=== PATIENT | male | born 1990 | race Caucasian/White ===

== ENCOUNTER 2019-05-07 17:12 | Inpatient (IN) | payer OTHER ==
[2019-05-07 19:12] VITALS: BMI 23.6
[2019-05-07] MEDS ORDERED: BISMUTH SUBSALICYLATE 524 MG/30 ML UD PO PRN (20:07)
[2019-05-07] MEDS ORDERED: METHOCARBAMOL 500 MG TABLET PO PRN (20:07)
[2019-05-07] MEDS ORDERED: MAG HYDROX/AL HYDROX/SIMETH 30 ML UNIT-DOSE CUP PO PRN (20:07)
[2019-05-07] MEDS ORDERED: NICOTINE POLACRILEX 4 MG GUM BUC PRN (20:07)
[2019-05-07] MEDS ORDERED: IBUPROFEN 400 MG TABLET (FP) PO PRN (20:07)
[2019-05-07] MEDS ORDERED: MAGNESIUM CITRATE 300 ML BOTTLE PO PRN (20:07)
[2019-05-07] MEDS ORDERED: MAGNESIUM HYDROX 2400MG/30ML ORAL SUSPENSION 30 ML CUP PO PRN (20:07)
[2019-05-07] MEDS ORDERED: hydrOXYzine PAMOATE 25 MG CAPSULE (FP) PO PRN (20:07)
[2019-05-07] MEDS ORDERED: MENTHOL/PHENOL 1 EACH UD MM PRN (20:07)
[2019-05-07] MEDS ORDERED: ACETAMINOPHEN 325 MG TABLET (FP) PO PRN ×2 (20:07)
--- NOTE | 2019-05-07 20:07 | HP ---
COWS - Scale Resting Pulse: 0= [place] 80 or Below Sweatin= Chills/Flushing Restless Observation: 3= Extraneous Movement Pupil Size: 2= Moderately Dilated Bone or Joint Aches: 2= Severe Diffuse Aches Runny Nose/ Eye Tearin= Runny Nose/Eyes GI Upset > 30mins: 2= Nausea/Diarrhea Tremor Observation: 2= Slight Tremor Visible Yawning Observation: 0= None Anxiety or Irritability: 2=Irritable/Anxious Goose Flesh Skin: 0=Smooth Skin COWS Score: 16 CIWA Score Nausea/Vomitin Muscle Tremors: 3 Anxiety: 3 Agitation: 0-Normal Activity Paroxysmal Sweats: 2 Orientation: 0-Oriented Tacttile Disturbances: 0-None Auditory Disturbances: 2-Mild Harshness/Frighten Visual Disturbances: 2-Mild Sensitivity Headache: 2-Mild CIWA-Ar Total Score: 16 - Admission Criteria OASAS Guidelines: Admission for Medically Managed Detox: Requires at least one of the followin. CIWA greater than 12 2. Seizures within the past 24 hours 3. Delirium tremens within the past 24 hours 4. Hallucinations within the past 24 hours 5. Acute intervention needed for co occurring medical disorder 6. Acute intervention needed for co occurring psychiatric disorder 7. Severe withdrawal that cannot be handled at a lower level of care (continued vomiting, continued diarrhea, abnormal vital signs) requiring intravenous medication and/or fluids 8. Patient presents the following: CIWA greater than 12 Admission Criteria Met: Admission criteria met Admission ROS [facility] Chief Complaint: i overdosed Allergies/Adverse Reactions: Allergies Allergy/AdvReac Type Severity Reaction Status Date / Time No Known Allergies Allergy Verified 05/07/19 18:54 History of Present Illness: persents hosp for overdose at [facility] on ghb/methamphetamine also using heroin 1 bundle /d and 10mg xanax - Ebola screening Have you traveled outside of the country in the last 21 days: No (N) Have you had contact with anyone from an Ebola affected area: No Do you have a fever: No - Review of Systems Constitutional: Malaise, Changes in sleep EENT: reports: No Symptoms Reported Respiratory: reports: No Symptoms reported Cardiac: reports: No Symptoms Reported GI: reports: No Symptoms Reported : reports: No Symptoms Reported Musculoskeletal: reports: No Symptoms Reported Integumentary: reports: No Symptoms Reported Neuro: reports: No Symptoms reported Endocrine: reports: No Symptoms Reported Hematology: reports: No Symptoms Reported Psychiatric: reports: Anxious Patient History - Patient Medical History Hx Anemia: No Hx Asthma: No Hx Chronic Obstructive Pulmonary Disease (COPD): No Hx Cancer: No Hx Cardiac Disorders: No Hx Congestive Heart Failure: No Hx Hypertension: No Hx Hypercholesterolemia: No Hx Pacemaker: No HX Cerebrovascular Accident: No Hx Seizures: No Hx Dementia: No Hx Diabetes: No Hx Gastrointestinal Disorders: No Hx Liver Disease: No Hx Genitourinary Disorders: No Hx Sexually Transmitted Disorders: No Hx Renal Disease (ESRD): No Hx Thyroid Disease: No Hx Human Immunodeficiency Virus (HIV): No Hx Hepatitis C: No Hx Depression: No Hx Suicide Attempt: No Hx Bipolar Disorder: No Hx Schizophrenia: No Other Medical History: DENIES ALL - Patient Surgical History Past Surgical History: No - Smoking Cessation Smoking history: Current every day smoker Have you smoked in the past 12 months: Yes Aproximately how many cigarettes per day: 15 Initiated information on smoking cessation: Yes 'Breaking Loose' booklet given: 05/07/19 - Substances abused Other Other (specify): Methamphetamine Substance route: Injection Frequency: Daily Amount used: 1 gram Age of first use: 24 Date of last use: 05/06/19 Heroin Substance route: Injection Frequency: Daily Amount used: half a gram Age of first use: 19 Date of last use: 05/06/19 Alprazolam (Xanax) Substance route: Oral Frequency: Daily Amount used: 3 mg Age of first use: 15 Date of last use: 05/06/19 Family Disease History - Family Disease History Family History: Denies Admission Physical Exam [facility] - Vital Signs Vital Signs: Vital Signs - 24 hr 05/07/19 18:53 Temperature 97.2 F L Pulse Rate 65 Respiratory 16 Rate Blood Pressure 115/70 - Physical General Appearance: Yes: Disheveled, Mild Distress HEENTM: Yes: Within Normal Limits, EOMI Respiratory: Yes: Chest Non-Tender, Lungs Clear, Normal Breath Sounds Neck: Yes: Within Normal Limits Breast: Yes: Breast Exam Deferred Cardiology: Yes: Within Normal Limits Abdominal: Yes: Increased Bowel Sounds Back: Yes: Within Normal Limits Musculoskeletal: Yes: Within Normal Limits Extremities: Yes: Within Normal Limits Neurological: Yes: varnish dipper II-XII NML intact, Alert, Motor Strength 5/5 Integumentary: Yes: Normal Color, Dry, Warm Lymphatic: Yes: Within Normal Limits - Diagnostic (1) Gamma-hydroxybutyrate (GHB) use disorder, severe Current Visit: Yes Status: Acute (2) Opioid dependence with withdrawal Current Visit: Yes Status: Acute (3) Benzodiazepine dependence Current Visit: Yes Status: Acute Breathalyzer - Breathalyzer Breathalyzer: 0 Urine Drug Screen - Test Device Lot number: [id number] Expiration date: 02/14/21 - Control Is test valid?: Yes - Results Drug screen NEGATIVE: No Urine drug screen results: THC-Marijuana, MYNOR-Cocaine, MET-Methamphetamine, AMP- Amphetamines, FEN-Fentanyl, BZO-Benzodiazepines, MDMA-Ecstasy Inpatient Rehab Admission - Rehab Decision to Admit Inpatient rehab admission?: No
[2019-05-07] MEDS ORDERED: cloNIDine HCL 0.1 MG TABLET PO PRN (20:10)
[2019-05-07] MEDS ORDERED: METHADONE HCL 10 MG TABLET (FOR DETOX USE ONLY) PO ONE (20:10)
[2019-05-07] MEDS: diazePAM 5 MG TABLET PO SCH (21:33)
[2019-05-07] MEDS: NICOTINE 21 MG/24 HOURS TOPICAL PATCH TD SCH (21:34)
[2019-05-07] MEDS: THIAMINE HCL 100 MG TABLET (FP) PO SCH (21:34)
[2019-05-08] MEDS: diazePAM 5 MG TABLET PO SCH ×3 (05:38→22:19)
[2019-05-08] MEDS ORDERED: METHADONE HCL 5 MG TABLET (FOR DETOX USE ONLY) PO ONE (10:00)
[2019-05-08] MEDS: PRENATAL VITAMINS W/ FOLIC ACID TABLET (FP) PO SCH (10:15)
[2019-05-08] MEDS: NICOTINE 21 MG/24 HOURS TOPICAL PATCH TD SCH (10:15)
[2019-05-08] MEDS: diazePAM 5 MG TABLET PO PRN ×2 (10:15→19:15)
[2019-05-08 12:04] LABS: HEMATOCRIT 42.1 % (35.4-49); MCH 29.6 pg (25.7-33.7); MCHC 33.2 g/dl (32.0-35.9); MEAN CELL VOLUME 89.2 fl (80-96); MEAN PLT VOLUME 8.6 fl (7.5-11.1); PLATELET COUNT 293 K/MM3 (134-434); RBC 4.72 M/mm3 (4.00-5.60); RDW 16.5 % (11.9-15.9); WHITE BLOOD COUNT 7.1 K/mm3 (4.0-10.0)
[2019-05-08 12:14] LABS: ALBUMIN 3.3 g/dl (3.4-5.0); BILIRUBIN,TOTAL 0.2 mg/dL (0.2-1); BLOOD UREA NITROGEN 21.1 mg/dL (7-18); CALCIUM 8.8 mg/dL (8.5-10.1); CREATININE 0.9 mg/dL (0.55-1.3); POTASSIUM 3.7 mmol/L (3.5-5.1); TOT PROT 6.2 g/dl (6.4-8.2)
[2019-05-08] MEDS ORDERED: PANTOPRAZOLE 40 MG TABLET (FP) PO ONE (12:57)
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
[2019-05-08] MEDS: GABAPENTIN 300 MG CAPSULE (FP) PO SCH ×2 (14:18→22:19)
[2019-05-08] MEDS: EMTRICITABINE 200MG/TENOFOVIR 300MG PO SCH (19:13)
[2019-05-08] MEDS: RALTEGRAVIR POTASSIUM 400 MG TAB PO SCH ×2 (19:13→22:19)
[2019-05-08] MEDS: THIAMINE HCL 100 MG TABLET (FP) PO SCH (22:19)
[2019-05-08] MEDS: MELATONIN 5 MG TABLETS PO PRN (22:20)
[2019-05-09] MEDS: GABAPENTIN 300 MG CAPSULE (FP) PO SCH ×3 (06:36→22:22)
[2019-05-09] MEDS: diazePAM 5 MG TABLET PO SCH ×2 (06:36→17:49)
[2019-05-09] MEDS ORDERED: PANTOPRAZOLE 40 MG TABLET (FP) PO SCH (10:00)
[2019-05-09] MEDS ORDERED: METHADONE HCL 10 MG TABLET (FOR DETOX USE ONLY) PO ONE (10:00)
[2019-05-09] MEDS: PANTOPRAZOLE 40 MG TABLET (FP) PO SCH (10:23)
[2019-05-09] MEDS: RALTEGRAVIR POTASSIUM 400 MG TAB PO SCH ×2 (10:24→22:22)
[2019-05-09] MEDS: NICOTINE 21 MG/24 HOURS TOPICAL PATCH TD SCH (10:25)
[2019-05-09] MEDS: PRENATAL VITAMINS W/ FOLIC ACID TABLET (FP) PO SCH (10:26)
[2019-05-09] MEDS: EMTRICITABINE 200MG/TENOFOVIR 300MG PO SCH (10:26)
[2019-05-09] MEDS: diazePAM 5 MG TABLET PO PRN ×3 (10:27→22:21)
--- NOTE | 2019-05-09 14:55 | PN ---
S CIWA - CIWA Score Nausea/Vomitin-Mild Nausea/No Vomiting Muscle Tremors: 3 Anxiety: 2 Agitation: 2 Paroxysmal Sweats: 1-Minimal Palms Moist Orientation: 0-Oriented Tacttile Disturbances: 1-Very Mild Itch/Numbness Auditory Disturbances: 0-None Visual Disturbances: 0-None Headache: 1-Very Mild CIWA-Ar Total Score: 11 BHS COWS - Scale Resting Pulse: 0= [place] 80 or Below Sweatin= Chills/Flushing Restless Observation: 0= Sits Still Pupil Size: 0= Normal to Room Light Bone or Joint Aches: 1= Mild Discomfort Runny Nose/ Eye Tearin= Nasal Congestion GI Upset > 30mins: 2= Nausea/Diarrhea Tremor Observation of Outstretched Hands: 2= Slight Tremor Visible Yawning Observation: 2= >3x During Session Anxiety or Irritability: 2=Irritable/Anxious Goose Flesh Skin: 0=Smooth Skin COWS Score: 11 S Progress Note (SOAP) Subjective: patient attended unit meeting and health teaching group by the nurses history of depression psychiatric referral Objective: 05/09/19 14:57 Vital Signs Temperature 98.3 F 05/09/19 13:20 Pulse Rate 68 05/09/19 13:20 Respiratory Rate 18 05/09/19 13:20 Blood Pressure 121/67 05/09/19 13:20 O2 Sat by Pulse Oximetry (%) Laboratory Last Values WBC 7.1 K/mm3 (4.0-10.0) 05/08/19 07:00 RBC 4.72 M/mm3 (4.00-5.60) 05/08/19 07:00 Hgb 14.0 GM/dL (11.7-16.9) 05/08/19 07:00 Hct 42.1 % (35.4-49) 05/08/19 07:00 MCV 89.2 fl (80-96) 05/08/19 07:00 MCH 29.6 pg (25.7-33.7) 05/08/19 07:00 MCHC 33.2 g/dl (32.0-35.9) 05/08/19 07:00 RDW 16.5 % (11.9-15.9) H 05/08/19 07:00 Plt Count 293 K/MM3 (134-434) 05/08/19 07:00 MPV 8.6 fl (7.5-11.1) 05/08/19 07:00 Sodium 140 mmol/L (136-145) 05/08/19 07:00 Potassium 3.7 mmol/L (3.5-5.1) 05/08/19 07:00 Chloride 105 mmol/L (98-107) 05/08/19 07:00 Carbon Dioxide 28 mmol/L (21-32) 05/08/19 07:00 Anion Gap 6 MMOL/L (8-16) L 05/08/19 07:00 BUN 21.1 mg/dL (7-18) H 05/08/19 07:00 Creatinine 0.9 mg/dL (0.55-1.3) 05/08/19 07:00 Est GFR (CKD-EPI)AfAm 133.30 05/08/19 07:00 Est GFR (CKD-EPI)NonAf 115.01 05/08/19 07:00 Random Glucose 101 mg/dL (74-106) 05/08/19 07:00 Calcium 8.8 mg/dL (8.5-10.1) 05/08/19 07:00 Total Bilirubin 0.2 mg/dL (0.2-1) 05/08/19 07:00 AST 21 U/L (15-37) 05/08/19 07:00 ALT 25 U/L (13-61) 05/08/19 07:00 Alkaline Phosphatase 54 U/L (45-117) 05/08/19 07:00 Total Protein 6.2 g/dl (6.4-8.2) L 05/08/19 07:00 Albumin 3.3 g/dl (3.4-5.0) L 05/08/19 07:00 RPR Titer Nonreactive (NONREACTIVE) 05/08/19 07:00 lab noted Assessment: 05/09/19 14:57 benzo and opiate withdrawal sx Plan: continue benzo and opiate detox
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
[2019-05-09] MEDS: THIAMINE HCL 100 MG TABLET (FP) PO SCH (22:21)
[2019-05-09] MEDS: MELATONIN 5 MG TABLETS PO PRN (22:22)
[2019-05-10] MEDS: GABAPENTIN 300 MG CAPSULE (FP) PO SCH (05:22)
[2019-05-10] MEDS ORDERED: diazePAM 5 MG TABLET PO ONE (06:00)
[2019-05-10] MEDS ORDERED: METHADONE HCL 5 MG TABLET (FOR DETOX USE ONLY) PO ONE (06:00)
[2019-05-10] MEDS: PANTOPRAZOLE 40 MG TABLET (FP) PO SCH (07:18)
[2019-05-10 09:04] VITALS: BP 127/72; PULSE 72; TEMP 97.7
--- NOTE | 2019-05-10 11:27 | DS ---
[facility] Detox Discharge Summary Admission Date: 05/07/19 Discharge Date: 05/10/19 - History Present History: Opioid Dependence, Sedative Dependence Additional Comments: 28 years old male admitted on 05/07/19 for acute benzo and opiate withdrawal sx management no complication throughout the detox stay alert oriented x 3 denies shortness of breath denies dizziness aftercare [facility] Pertinent Past History: encourage the [facility] - Physical Exam Results Vital Signs: Vital Signs Temperature 97.7 F 05/10/19 09:04 Pulse Rate 72 05/10/19 09:04 Respiratory Rate 18 05/10/19 09:04 Blood Pressure 127/72 05/10/19 09:04 O2 Sat by Pulse Oximetry (%) Pertinent Admission Physical Exam Findings: benzo and opiate withdrawal sx Laboratory Last Values WBC 7.1 K/mm3 (4.0-10.0) 05/08/19 07:00 RBC 4.72 M/mm3 (4.00-5.60) 05/08/19 07:00 Hgb 14.0 GM/dL (11.7-16.9) 05/08/19 07:00 Hct 42.1 % (35.4-49) 05/08/19 07:00 MCV 89.2 fl (80-96) 05/08/19 07:00 MCH 29.6 pg (25.7-33.7) 05/08/19 07:00 MCHC 33.2 g/dl (32.0-35.9) 05/08/19 07:00 RDW 16.5 % (11.9-15.9) H 05/08/19 07:00 Plt Count 293 K/MM3 (134-434) 05/08/19 07:00 MPV 8.6 fl (7.5-11.1) 05/08/19 07:00 Sodium 140 mmol/L (136-145) 05/08/19 07:00 Potassium 3.7 mmol/L (3.5-5.1) 05/08/19 07:00 Chloride 105 mmol/L (98-107) 05/08/19 07:00 Carbon Dioxide 28 mmol/L (21-32) 05/08/19 07:00 Anion Gap 6 MMOL/L (8-16) L 05/08/19 07:00 BUN 21.1 mg/dL (7-18) H 05/08/19 07:00 Creatinine 0.9 mg/dL (0.55-1.3) 05/08/19 07:00 Est GFR (CKD-EPI)AfAm 133.30 05/08/19 07:00 Est GFR (CKD-EPI)NonAf 115.01 05/08/19 07:00 Random Glucose 101 mg/dL (74-106) 05/08/19 07:00 Calcium 8.8 mg/dL (8.5-10.1) 05/08/19 07:00 Total Bilirubin 0.2 mg/dL (0.2-1) 05/08/19 07:00 AST 21 U/L (15-37) 05/08/19 07:00 ALT 25 U/L (13-61) 05/08/19 07:00 Alkaline Phosphatase 54 U/L (45-117) 05/08/19 07:00 Total Protein 6.2 g/dl (6.4-8.2) L 05/08/19 07:00 Albumin 3.3 g/dl (3.4-5.0) L 05/08/19 07:00 RPR Titer Nonreactive (NONREACTIVE) 05/08/19 07:00 lab noted - Treatment Hospital Course: Detox Protocol Followed, Detoxed Safely, Responded well, Discharged Condition Good, Rehab Referral Accepted Patient has Accepted a Rehab Referral to: [facility] - Medication Discharge Medications: Ambulatory Orders Gabapentin 300 mg PO TID 05/07/19 Omeprazole-Bicarb 40-1,100 Cap 40 mg PO DAILY 05/07/19 Emtricitabine/Tenofovir (Tdf) [Truvada 200 mg-300 mg Tablet] 1 tablet PO DAILY 05/08/19 Raltegravir Potassium [Isentress] 1 tablet PO BID 05/08/19 - Diagnosis (1) Opioid dependence with withdrawal Current Visit: Yes Status: Acute (2) Benzodiazepine dependence Current Visit: Yes Status: Acute (3) Substance induced mood disorder Current Visit: Yes Status: Suspected - AMA Did Patient Leave Against Medical Advice: No
== END 2019-05-10 10:48 | disposition home or self-care (01) | DRG 773 ==
LOC: YASAS 17:12 → Y3N 20:28
PROVIDERS: ADMIT Surgery; ATTEND Surgery
PROC: HZ2ZZZZ Detoxification Services for Substance Abuse Treatment (ICD-10-PCS; principal; 2019-05-07)
DX: F11.23 Opioid dependence with withdrawal (principal); F13.230 Sedative, hypnotic or anxiolytic dependence with withdrawal, uncomplicated; F15.20 Other stimulant dependence, uncomplicated; F19.20 Other psychoactive substance dependence, uncomplicated; F19.24 Other psychoactive substance dependence with psychoactive substance-induced mood disorder
CPT/HCPCS: 36415; 80053; 85027; 86593

== ENCOUNTER 2020-06-08 19:56 | Emergency (ER) | payer OTHER ==
[2020-06-08 20:02] VITALS: BP 125/81; PULSE 80; TEMP 98.6; BMI 23.7
--- NOTE | 2020-06-08 20:51 | PDOC ---
History of Present Illness - General Chief Complaint: Pain, Acute Stated Complaint: Detox Time Seen by Provider: 06/08/20 20:28 - History of Present Illness Initial Comments: 06/08/20 21:11 29 year old man who presents with feeling unwell and seeking detox from benzos, GHB and methamphetamines. He last used 1 day ago. He is currently on antibiotics for L finger cellulitis and took suboxone 4 hours proir to arrival which had pr eviously been prescribed to him from [facility]. He reports some mild abd discomfort but states he is very hungry and tired. He requests food and detox. COWS of 4 ROS GENERAL/CONSTITUTIONAL: No fever or chills. No weakness. HEAD, EYES, EARS, NOSE AND THROAT: No change in vision. No ear pain or discharge. No sore throat. CARDIOVASCULAR: No chest pain or shortness of breath RESPIRATORY: No cough, wheezing, or hemoptysis. GASTROINTESTINAL: + nausea, No vomiting, diarrhea or constipation. GENITOURINARY: No dysuria, frequency, or change in urination. MUSCULOSKELETAL: No joint or muscle swelling or pain. No neck or back pain. SKIN: No rash NEUROLOGIC: No headache, vertigo, loss of consciousness, or change in strength/sensation. ENDOCRINE: No increased thirst. No abnormal weight change HEMATOLOGIC/LYMPHATIC: No anemia, easy bleeding, or history of blood clots. ALLERGIC/IMMUNOLOGIC: No hives or skin allergy. PE GENERAL: Awake, alert, and fully oriented, in no acute distress HEAD: No signs of trauma, normocephalic, atraumatic EYES: PERRLA, EOMI, sclera anicteric, conjunctiva clear ENT: oropharynx clear without exudates. Moist mucosa NECK: Normal ROM, supple LUNGS: No distress, speaks full sentences, clear to auscultation bilaterally HEART: Regular rate and rhythm, normal S1 and S2, no murmurs, rubs or gallops, peripheral pulses normal and equal bilaterally. ABDOMEN: Soft, nontender, No guarding, no rebound. No masses EXTREMITIES : Normal inspection, Normal range of motion, no edema. No clubbing or cyanosis. NEUROLOGICAL: Cranial nerves II through XII grossly intact. Normal speech, normal gait, no focal sensorimotor deficits SKIN: Warm, Dry, normal turgor, no rashes or lesions noted Assessment and Plan 29 year old man who presents with feeling unwell and seeking detox from benzos, GHB and methamphetamines. COWS 4 pt already took suboxone prior to arrival po trial successful Will have patient proceed to [facility]. Aletha Mathur, PGY3 Emergency Medicine Past History - Medical History Allergies/Adverse Reactions: Allergies Allergy/AdvReac Type Severity Reaction Status Date / Time No Known Allergies Allergy Verified 06/08/20 22:14 Home Medications: Ambulatory Orders Buprenorphine HCl/Naloxone HCl [Buprenorp-Nalox 8-2 mg Sl Film] 1 each SL BID Doxycycline Hyclate 100 mg PO BID 06/08/20 Pantoprazole Sodium 40 mg PO BID 06/08/20 Anemia: No Asthma: No Cancer: No Cardiac Disorders: No CVA: No COPD: No CHF: No Dementia: No Diabetes: No GI Disorders: No Disorders: No HTN: No Hypercholesterolemia: No Kidney Stones: No Liver Disease: No Seizures: No Thyroid Disease: No - Surgical History Abdominal Surgery: No Appendectomy: No Cardiac Surgery: No Cholecystectomy: No Lung Surgery: No Neurologic Surgery: No Orthopedic Surgery: No - Reproductive History Testicular Surgery: No - Psycho-Social/Smoking History Smoking History: Current some day smoker Have you smoked in the past 12 months: Yes Number of Cigarettes Smoked Daily: 10 Information on smoking cessation initiated: No 'Breaking Loose' booklet given: 05/07/19 - Substance Abuse Hx (Audit-C & DAST Scrn) How often the patient has a drink containing alcohol: Never Score: In Men: 4 or > Positive; In Women: 3 or > Positive: 0 Screen Result (Pos requires Nsg. Audit-10AR): Negative In the last yr the pt used illegal drug/Rx for NonMed reason: Yes Score: Yes response is considered Positive: 1 Screen Result (Positive result requires Nsg. DAST-10): Positive *Physical Exam - Vital Signs Last Vital Signs Temp Pulse Resp BP Pulse Ox 98.6 F 80 19 125/81 96 06/08/20 19:58 06/08/20 19:58 06/08/20 19:58 06/08/20 19:58 06/08/20 19:58 Discharge - Discharge Information Problems reviewed: Yes Clinical Impression/Diagnosis: Abdominal pain Condition: Fair Disposition: TRANSFER ACUTE CARE/OTHER HOSP - Follow up/Referral - Patient Discharge Instructions - Post Discharge Activity
--- NOTE | 2020-06-21 04:40 | PDOC ---
Documentation entered by Umu Romero SCRIBE, acting as scribe for Gavi Bolton MD. Gavi Bolton MD: This documentation has been prepared by the shobhaibeHeather Sydney, SCRIBE, under my direction and personally reviewed by me in its entirety. I confirm that the documentation accurately reflects all work, treatment, procedures, and medical decision making performed by me. Attending Attestation - Resident Resident Name: Aletha Mathur - ED Attending Attestation I have performed the following: I have examined & evaluated the patient, The case was reviewed & discussed with the resident, I agree w/resident's findings & plan, Exceptions are as noted - HPI HPI: 06/21/20 04:38 29 year old man who presents with feeling unwell and seeking detox from benzos, GHB and methamphetamines. He last used 1 day ago. He is currently on antibiotics for L finger cellulitis and took suboxone 4 hours proir to arrival which had previously been prescribed to him from [facility]. He reports some mild abd discomfort but states he is very hungry and tired. He requests food and detox. COWS of 4 - Physicial Exam PE: 06/21/20 04:38 PE GENERAL: Awake, alert, and fully oriented, in no acute distress HEAD: No signs of trauma, normocephalic, atraumatic EYES: PERRLA, EOMI, sclera anicteric, conjunctiva clear ENT: oropharynx clear without exudates. Moist mucosa NECK: Normal ROM, supple LUNGS: No distress, speaks full sentences, clear to auscultation bilaterally HEART: Regular rate and rhythm, normal S1 and S2, no murmurs, rubs or gallops, peripheral pulses normal and equal bilaterally. ABDOMEN: Soft, nontender, No guarding, no rebound. No masses EXTREMITIES : Normal inspection, Normal range of motion, no edema. No clubbing or cyanosis. NEUROLOGICAL: Cranial nerves II through XII grossly intact. Normal speech, normal gait, no focal sensorimotor deficits SKIN: Warm, Dry, normal turgor, no rashes or lesions noted - Medical Decision Making 06/21/20 04:38 29 year old man who presents with feeling unwell and seeking detox from benzos, GHB and methamphetamines. We got pt a [facility] detox facility; no medical workup required here Exam normal and pt is able to tolerate PO intake. Discharge - Discharge Information Problems reviewed: Yes Clinical Impression/Diagnosis: Abdominal pain Condition: Fair Disposition: TRANSFER ACUTE CARE/OTHER HOSP - Follow up/Referral - Patient Discharge Instructions - Post Discharge Activity
== END 2020-06-08 21:26 | disposition short-term general hospital (02) ==
LOC: JER 19:56
DX: F19.939 Other psychoactive substance use, unspecified with withdrawal, unspecified (principal)
CPT/HCPCS: 99281-25